=== PATIENT | male | born 1985 | race Two or more races ===

== ENCOUNTER 2020-06-06 09:13 | Day surgery (SDC) | payer OTHER ==
[~2020-06-06] VITALS: Ht 182.9 cm; Wt 136.1 kg
[2020-06-06] VITALS (9 sets, daily range): BP systolic 121–143; BP diastolic 64–88
--- NOTE | 2020-06-06 07:11 | Pre-Procedure Note/Attestation ---
Pre-Procedure Note/Attestation Complete Prior to Procedure Planned Procedure: left Procedure Narrative: left de quervain release Indications for Procedure Pre-Operative Diagnosis: left de Quervain tenosynovitis Attestation I attest that I discussed the nature of the procedure; its benefits; risks and complications; and alternatives (and the risks and benefits of such alternatives), prior to the procedure, with the patient (or the patient's legal patient registration representative). I attest that, if there was a reasonable possibility of needing a blood transfusion, the patient (or the patient's legal patient registration representative) was given the [facility] standardized written summary, pursuant to the [place] Blood Safety Act ([place] Health and Safety Code # 1645, as amended). I attest that I re-evaluated the patient just prior to the surgery and that there has been no change in the patient's H&P, except as documented below:none Xander Thomason MD Jun 06, 2020 07:11
[~2020-06-06 09:13] MED LIST: ceFAZolin 1gm IVPB IVPB ONE; celeBREX 200mg Cap **SURGERY PATIENTS ONLY ORAL ONE
[2020-06-06] MEDS ORDERED: ACTOS15 MG ORAL (09:52)
[2020-06-06] MEDS ORDERED: METFORMIN HCL500 M1 ORAL (09:52)
[2020-06-06] MEDS ORDERED: celeBREX 200mg Cap **SURGERY PATIENTS ONLY ORAL ONE (10:11)
[2020-06-06] MEDS ORDERED: fentaNYL 100 mcg/2 mL IV ONE (10:19)
[2020-06-06] MEDS ORDERED: Midazolam 2mg/2ml Inj ONE (10:19)
[2020-06-06] MEDS ORDERED: Lidocaine 1% MPF 10mg/ml 5ml ONE (10:21)
[2020-06-06] MEDS ORDERED: HYDROmorphone 1mg/ml Carpuject SUBQ PRN (11:15)
[2020-06-06] MEDS ORDERED: Tylenol #3 tab (300mg/30mg) ORAL PRN (11:15)
[2020-06-06] MEDS ORDERED: HYDROcodone/Acetamin 5/325 tab ORAL PRN (11:15)
[2020-06-06] MEDS ORDERED: EPINEPHrine 1mg/1ml Amp ONE (11:30)
[2020-06-06] MEDS ORDERED: Bupivacaine 0.5% Inj 30 ml vial INJ ONE (11:30)
[2020-06-06] MEDS ORDERED: Bupivacaine 0.25% Inj 30ml INJ ONE (11:30)
[2020-06-06] MEDS ORDERED: Lidocaine 1% Plain 30 ml INJ ONE (11:31)
[2020-06-06] MEDS ORDERED: LR 1000ml ONE (12:00)
[2020-06-06] MEDS ORDERED: NS Irrig 1000ml ONE (12:00)
[2020-06-06] MEDS ORDERED: Sterile Water Irrig 1000ml IRRIG ONE (12:00)
--- NOTE | 2020-06-06 12:17 | Anethesia Preoperative Eval ---
Anesthesia Pre-op PMH/ROS General Date of Evaluation: Jun 06, 2020 Time of Evaluation: 11:41 Anesthesiologist: Melissa ASA Score: ASA 2 Mallampati Score Class I : Soft palate, uvula, fauces, pillars visible Class II: Soft palate, uvula, fauces visible Class III: Soft palate, base of uvula visible Class IV: Only hard plate visible Mallampati Classification: Class II Surgeon: Katelin Diagnosis: L wrist pain Surgical Procedure: L wrist contructure relise Anesthesia History: none Family History: no anesthesia problems Allergies: Coded Allergies: No Known Allergies (Unverified , 06/02/20) Medications: see eMAR Patient NPO?: Yes Past Medical History Cardiovascular: Denies: HTN, CAD, MT, valve dz, arrhythmia, other Pulmonary: Denies: asthma, COPD, ARIA, other Gastrointestinal/Genitourinary: Reports: GERD; Denies: CRI, ESRD, other Neurologic/Psychiatric: Denies: dementia, CVA, depression/anxiety, TIA, other Endocrine: Reports: DM; Denies: hypothyroidism, steroids, other HEENT: Denies: cataract (L), cataract (R), glaucoma, HOONAH (L), HOONAH (R), other Hematology/Immune: Denies: anemia, DVT, bleeding disorder, other Musculoskeletal/Integumentary: Denies: OA, RA, DJD, DDD, edema, other Other: obesity PMH Narrative: as above PSxH Narrative: Hernia repair Anesthesia Pre-op Phys. Exam Physician Exam Last Vital Signs Date Time Temp Pulse Resp B/P (MAP) Pulse Ox O2 Delivery O2 Flow Rate FiO2 06/06/20 09:57 Room Air 06/06/20 09:53 97.6 75 18 143/88 99 Constitutional: NAD Neurologic: CN 2-12 intact Cardiovascular: RRR, no M/R/G Respiratory: CTA Gastrointestinal: other - obesity Airway Exam Mallampati Score: Class II MO: full Neck: short ROM: full Teeth: intact Dentures: no upper, no lower Anesthesia Pre-op A/P Labs Chemistry Test 06/06/20 10:07 POC Whole Blood Glucose Pending Studies Pre-op Studies: EKG - SR Risk Assessment & Plan Assessment: ASA 2 Plan: GA with LMA Status Change Before Surgery: No Pre-Antibiotics Drug: Ancef 2gr Given Within 1 Hr of Incision: Yes Time Given: 12:08 Justin Torres MD Jun 06, 2020 12:17
[2020-06-06] MEDS ORDERED: LR 1000ml 1,000 ML IVLG SCH (12:30)
[2020-06-06] MEDS ORDERED: Meperidine 25mg/1ml Inj (FOR RIGORS ONLY) IV PRN (12:30)
[2020-06-06] MEDS ORDERED: DiphenhydrAMINE 50mg/ml Inj IVP PRN (12:30)
[2020-06-06] MEDS ORDERED: Midazolam 2mg/2ml Inj IVP PRN (12:30)
[2020-06-06] MEDS ORDERED: Ketorolac 30mg Inj IV PRN (12:30)
--- NOTE | 2020-06-06 12:34 | Brief Operative Note ---
Immediate Post Operative Note Operative Note Chief Complaint: left rist pain Pre-op Diagnosis: left wrist de quervain tenosynovitis Procedure: left wrist de quervain release Post-op Diagnosis: same as pre-op Findings: consistent w/pre-op dx studies Surgeon: md christopher Fuel Assembler: kristi potts Anesthesiologist: md charmaine Anesthesia: general Specimen: none Complications: none Condition: stable Fluids: ns Estimated Blood Loss: minimal Drains: none Implant(s) used?: No Cris Potts Jun 06, 2020 12:34
--- NOTE | 2020-06-06 12:46 | Immediate Post-Op Evaluation ---
Immediate Post-Op Evalulation Immediate Post-Op Evalulation Procedure: L wrist contructure release Date of Evaluation: Jun 06, 2020 Time of Evaluation: 12:44 IV Fluids: 600 Blood Products: none Estimated Blood Loss: min Urinary Output: none Blood Pressure Systolic: 127 Blood Pressure Diastolic: 64 Pulse Rate: 74 Respiratory Rate: 20 O2 Sat by Pulse Oximetry: 99 Temperature (Fahrenheit): 97.6 Pain Score (1-10): 1 Nausea: No Vomiting: No Complications none Patient Status: reacts, patent, none Hydration Status: adequate Justin Torres MD Jun 06, 2020 12:46
--- NOTE | 2020-06-06 13:30 | 48 Hour Post Anesthesia Eval ---
Post Anesthesia Evaluation Procedure: L wrist contructure release Date of Evaluation: Jun 06, 2020 Time of Evaluation: 13:29 Blood Pressure Systolic: 136 0: 78 Pulse Rate: 82 Respiratory Rate: 18 Temperature (Fahrenheit): 97.8 O2 Sat by Pulse Oximetry: 99 Airway: patent Nausea: No Vomiting: No Pain Intensity: 2 Hydration Status: adequate Cardiopulmonary Status: stable Mental Status/LOC: patient returned to baseline Follow-up Care/Observations: n/a Post-Anesthesia Complications: none Follow-up care needed: ready to discharge Justin Torres MD Jun 06, 2020 13:30
--- NOTE | 2020-06-06 16:15 | Operative Note - Dictated ---
DATE OF OPERATION: 06/06/2020 PREOPERATIVE DIAGNOSIS: Left wrist de Quervain tenosynovitis. POSTOPERATIVE DIAGNOSES: 1. Left wrist de Quervain tenosynovitis. 2. Left wrist extensor pollicis brevis partial tear involving 20% of the tendon. PROCEDURE: 1. Left wrist de Quervain release with release of first dorsal compartment. 2. Left wrist extensor pollicis brevis debridement of the partial tear of the tendon. SURGEON: Xander Thomason MD. SUPERVISOR CUTTING AND BONING: Cris Kee PA-C. ANESTHESIOLOGIST: Dandre Munoz MD. ANESTHESIA: General LMA anesthesia. ESTIMATED BLOOD LOSS: Less than 20 mL. COMPLICATIONS: None. BRIEF HISTORY: The patient is a pleasant 34-year-old male, who sustained injury to his left wrist. He was treated conservatively. Subsequently, continued to have a lot of pain, swelling, and decreased range of motion, stiffness. After full discussion of risks, benefits of the surgery and complications associated with it including infection, bleeding, neurovascular complication, possibility of sensory nerve damage and neuritis, possibility of continued pain, swelling, instability, other complications that may arise down the line, he opted for surgical treatment as described above. OPERATIVE PROCEDURE: The patient was brought to the operating room table and was placed supine. All pressure points were well padded. General LMA anesthesia was induced. The left wrist was prepped and draped in usual sterile fashion. The left arm was exsanguinated. Tourniquet was inflated to 275 mmHg. A horizontal incision was made over the area of the first dorsal compartment. The incision was taken through the skin. However, the incision was not taken through the subcutaneous tissue. Using the Littler scissors, the subcutaneous tissue was dissected and the sensory nerves were retracted volarly and dorsally. The first dorsal compartment was identified. The first dorsal compartment was then released using a knife distally to proximally. At this point, the tendons were visualized. Using a mosquito, they brought outside of the wound. The extensor pollicis brevis appeared to have a partial tear involving 20% of the tendon. This was debrided fully. The rest of the tendon appeared to be intact. At this point, wounds were thoroughly irrigated using copious amount of fluid. The skin was then closed using 3-0 Vicryl subcutaneous sutures and 2-0 nylon sutures. Sterile dressing was applied and the patient was taken to recovery room in stable condition. The tourniquet time was 15 minutes. Complication was none. Xander Thomason M.D. DR: SILVIA JOB#: [id number] CC: MARTHA
[2020-06-06] MEDS ORDERED: D5 1/2NS 1,000 ML IV SCH (17:00)
== END 2020-06-06 13:55 | disposition home or self-care (01) ==
LOC: SUR 09:13
DX: M65.4 Radial styloid tenosynovitis [de Quervain] (principal); S66.318A Strain of extensor muscle, fascia and tendon of other finger at wrist and hand level, initial encounter; X58.XXXA Exposure to other specified factors, initial encounter; Y92.9 Unspecified place or not applicable; K21.9 Gastro-esophageal reflux disease without esophagitis; E11.9 Type 2 diabetes mellitus without complications; E66.9 Obesity, unspecified; Z68.41 Body mass index [BMI] 40.0-44.9, adult
CPT/HCPCS: 11043; 25000; 82962; 94003; J0171; J0690; J1885; J2250; J2704; J3010; J3490; J7120; 94150